=== PATIENT | male | born 1955 | race Caucasian/White ===

== ENCOUNTER 2021-09-16 13:08 | Inpatient (IN) ==
[2021-09-16] MEDS ORDERED: MoRPHine SULFATE 4 MG/ML 1 ML CARP\\VIAL IV PRN (13:21)
[2021-09-16] MEDS ORDERED: ONDANSETRON INJ 2 MG/ML 2 ML VIAL IV STA (13:21)
--- NOTE | 2021-09-16 13:46 | XRay Report ---
XR chest 1V portable CLINICAL HISTORY: Chest Pain. COMPARISON STUDY: No previous studies for comparison. TECHNIQUE: 1 view of the chest FINDINGS: Single frontal view of the chest demonstrates the cardiomediastinal silhouette to be within normal li mits. The patient is status post previous cardiothoracic surgery. The lungs are clear of alveolar opa cities. There is no evidence for pleural effusion. There is no evidence for vascular congestion. Ther e is no acute osseous pathology. IMPRESSION: No acute cardiopulmonary disease. ACT 112: Negative or not required by law. Electronically signed by: Mino Daniel M.D. 09/16/2021 1:45 PM
[2021-09-16 13:58] LABS: Basophils # (auto) 0.03 K/uL (0-0.2); Basophils % (auto) 0.3 %; Eosinophils # (auto) 0.34 K/uL (0-0.5); Eosinophils % (auto) 2.8 %; Hematocrit (blood only) 35.2 % (42-52); Hemoglobin 11.1 g/dL (14.0-18.0); Immature Granulocytes # (auto) 0.09 K/uL (0.00-0.02); Immature Granulocytes % (auto) 0.8 %; Lymphocytes # (auto) 1.09 K/uL (1.2-3.4); Lymphocytes % (auto) 9.1 %; Mean Corpuscular Hemoglobin 30.6 pg (25-34); Mean Corpuscular Hgb Conc 31.5 g/dL (32-36); Mean Platelet Volume 10.2 fL (7.4-10.4); Monocytes # (auto) 0.78 K/uL (0.11-0.59); Monocytes % (auto) 6.5 %; Neutrophils # (auto) 9.61 K/uL (1.4-6.5); Neutrophils % (auto) 80.5 %; Platelet Count 430 K/uL (130-400); RDW Coefficient of Variation 12.7 % (11.5-14.5); RDW Standard Deviation 44.9 fL (36.4-46.3); Red Blood Count 3.63 M/uL (4.7-6.1); White Blood Count 11.94 K/uL (4.8-10.8)
--- NOTE | 2021-09-16 14:04 | Emergency Department Note ---
Impression & Plan Acute deep vein thrombosis (DVT) of right upper extremity, Lab test positive for detection of COVID-19 virus, Coronary artery disease, Status post coronary artery bypass graft ED Provider Note NAME: ELVI BRITT AGE: 66 SEX: M : 1955 ARRIVES VIA: Ambulance INFORMANT: Patient, ED PROVIDER(S): Basilio Montaño DO CHIEF COMPLAINT: Arm swelling HPI: The patient is a 66-year-old male who presented to the emergency department for an evaluation of arm swelling. The patient had recent coronary artery bypass grafting on 09 September. This procedure was done at [facility]. The patient has been compliant with his usual medications. He started noticing arm pain and swelling today while he was in the shower. The arm pain and swelling continued. He was sent to the emergency department because of this pain. Reportedly the arm was discolored and the pulses were diminished. The patient states the pain is moderate. He denies having any chest pain or difficulty breathing but is still recovering from bypass graft surgery. The patient states he has been taking all his medications only as prescribed. He was seen at the [facility]. He denies having any abdominal pain. The patient has no recent falls that he reports. ROS: See above HPI for pertinent positives & negatives. A total of 10 systems reviewed and were otherwise negative. PAST MEDICAL HISTORY: See Below PAST SURGICAL HISTORY: See Below FAMILY HISTORY: See Below SOCIAL HISTORY: See Below HOME MEDICATIONS: See Below ALLERGIES: See Below VITALS: See Below PHYSICAL EXAMINATION: GENERAL: Patient is awake alert in no acute distress patient is resting comfortably and showing no signs of anxiety EYES: The conjunctivae are clear. The pupils are round and reactive. EARS, NOSE, MOUTH AND THROAT: The nose is without any evidence of any deformity. Mucous membranes are moist. Tongue is midline. NECK: The neck is nontender and supple. RESPIRATORY: Diminished breath sounds are noted at both bases. There are rales at both bases. There was no tachypnea or conversational dyspnea. CARDIOVASCULAR: Regular rate and rhythm was noted to auscultation. Systolic murmur was suggested. GASTROINTESTINAL: The abdomen is soft. Abdomen is nontender. MUSCULOSKELETAL/EXTREMITIES: There is no evidence of gross deformity full range of motion is noted in the hips and shoulders. SKIN: Pulses are symmetric in both wrist. There is significant pallor and swelling to the right upper extremity. There is no pain with range of motion testing. Pedal edema was noted bilaterally. Skin was warm and dry. There is a healing scar on the anterior chest. There is no erythema drainage or dehiscence. NEUROLOGIC: Patient is awake alert and oriented x3. MEDICAL DECISION MAKING: The patient is a 66-year-old male who presented to the emergency department for an evaluation of right upper extremity swelling. The patient recently had coronary artery bypass grafting surgery. He presented to the emergency department after he noticed a rather acute onset of swelling in his right arm. Reportedly the patient had decreased pulses in the right wrist but on my physical exam the patient's pulses are symmetric. He does have discoloration as well as swelling in the right arm. Doppler report revealed extensive DVT through the right upper extremity extending into the right jugular vein. I discussed the patient's laboratory and radiographic studies with him. He was started on IV heparin in the emergency department. I did discuss his case with the covering cardiothoracic surgeon where the patient had his procedure. Obviously starting blood thinners on this patient would be required given the patient's findings but they did recommend once the patient was able to be disc harged to try to transition him to Coumadin. I discussed the patient's condition with the on-call [facility] hospitalist. They have agreed to evaluate the patient in the emergency department for further management and disposition. The patient did not have any chest pain tachycardia or hypoxia. Triage Nursing notes reviewed. Prior medical records reviewed Vital Signs: reviewed and remarkable for no significant abnormalities Differential diagnosis: DVT, musculoskeletal, infection, joint effusion, trauma, lymphedema, idiopathic, CHF, as well as other pathologies. ER treatment provided: See below Diagnostics interpreted by me: ECG: EKG was obtained in the emergency department. My interpretation is normal sinus rhythm at 70 bpm. There was no ectopy. Right bundle branch block pattern was noted. Anterior and lateral T wave versions were noted. No previous tracing was available. Cardiac Monitoring: An order was placed for continuous cardiac monitoring. The monitor shows a rate of 79 bpm with sinus rhythm. Laboratory studies: As stated above and show below. Imaging studies: See below Consultation(s): I discussed this case with Dr. Rae who is on for cardiothoracic surgery at [facility] where the patient had his bypass. He does recommend IV heparin at this time. When the patient is stabilized and able to be discharged to home he would prefer the patient to be bridged to Coumadin if at all possible but he is available for further consultation. I discussed this case with Dr. Mack who is on-call for the [facility] hospitalist group. They will evaluate the patient in the emergency department for further management and disposition. ED COURSE: Procedures: none Critical Care: I have personally spent greater than 55 minutes of critical care time in the direct management of this patient. This includes bedside care, interpretation of diagnostic studies, and testing, discussion with consultants, patient, and family members, and other required patient management activities. This 55 minutes is in excess of all separately billable procedures. Past Med/Surg History Medical History Abnormal nuclear stress test Angina, class II Antiplatelet or antithrombotic long-term use Dyslipidemia Family history of premature coronary artery disease Former smoker Hypertension Surgical History S/P CABG (coronary artery bypass graft) Social History Smoking Status: Never smoker Hx Alcohol Use: No Hx Substance Use: No Current Living Situation [facility] Feels Safe at Home: Yes Allergies Allergies Allergy/AdvReac Type Severity Reaction Status Date / Time No Known Allergies Allergy Verified 09/16/21 14:13 Home Meds Home Medications Medication Instructions Recorded Confirmed aspirin 81 mg tablet 81 mg PO DAILY 05/18/21 06/11/21 atenolol 50 mg tablet 50 mg PO DAILY 05/18/21 06/11/21 atorvastatin 40 mg tablet 40 mg PO DAILY 05/18/21 06/11/21 diltiazem HCl 120 mg tablet 120 mg PO BID tab 05/18/21 06/11/21 Previous Rx's Medication Instructions Recorded isosorbide mononitrate 30 mg 30 mg PO QAM #30 tab 06/11/21 tablet,extended release 24 hr Results & Data (ED) Vital Signs Vital Signs - 24 hr 09/16/21 13:21 09/16/21 13:31 09/16/21 15:00 Temperature 36.8 C Temperature Source Oral Pulse Rate 70 69 Pulse Rate [Apical] Pulse Rate from SpO2 Sensor 71 Respiratory Rate 18 18 Blood Pressure 120/69 118/77 Blood Pressure [Left Arm] Blood Pressure Mean 86 90 Blood Pressure Mean [Left Arm] Pulse Oximetry 95 94 96 Oxygen Delivery Method Room Air Room Air Room Air Sepsis Recent Fever Within 48 Hours No Sepsis New/Unexplained Change in Mental Status No Sepsis Action Taken by Nursing No Action Required 09/16/21 15:44 09/16/21 16:00 09/16/21 16:30 Temperature Temperature Source Pulse Rate 73 74 Pulse Rate [Apical] 71 Pulse Rate from SpO2 Sensor 72 68 Respiratory Rate 18 17 14 Blood Pressure 142/71 H 134/81 Blood Pressure [Left Arm] 120/77 Blood Pressure Mean 94 98 Blood Pressure Mean [Left Arm] 91 Pulse Oximetry 97 96 96 Oxygen Delivery Method Room Air Room Air Room Air Sepsis Recent Fever Within 48 Hours Sepsis New/Unexplained Change in Mental Status Sepsis Action Taken by Nursing 09/16/21 17:00 09/16/21 17:30 Temperature Temperature Source Pulse Rate 72 79 Pulse Rate [Apical] Pulse Rate from SpO2 Sensor 72 80 Respiratory Rate 17 24 Blood Pressure 140/94 Blood Pressure [Left Arm] Blood Pressure Mean 109 Blood Pressure Mean [Left Arm] Pulse Oximetry 96 97 Oxygen Delivery Method Room Air Room Air Sepsis Recent Fever Within 48 Hours Sepsis New/Unexplained Change in Mental Status Sepsis Action Taken by Jail Medications Current Medication List: was personally reviewed by me Laboratory Data Attestation: I reviewed the patient's lab results. Result diagrams: 09/16/21 13:39 09/16/21 13:39 Lab Results 09/16/21 09/16/21 09/16/21 Range/Units 13:00 13:39 13:39 WBC (4.8-10.8) K/uL RBC (4.7-6.1) M/uL Hgb (14.0-18.0) g/dL Hct (42-52) % MCV (80-100) fL MCH (25-34) pg MCHC (32-36) g/dL RDW Std Deviation (36.4-46.3) fL RDW Coeff of Mary (11.5-14.5) % Plt Count (130-400) K/uL MPV (7.4-10.4) fL Immature Gran % (Auto) % Neut % (Auto) % Lymph % (Auto) % [place] % (Auto) % Eos % (Auto) % Baso % (Auto) % Neut # (Auto) (1.4-6.5) K/uL Lymph # (Auto) (1.2-3.4) K/uL [place] # (Auto) (0.11-0.59) K/uL Eos # (Auto) (0-0.5) K/uL Baso # (Auto) (0-0.2) K/uL Immature Gran # (Auto) (0.00-0.02) K/uL PT 13.0 H (9.0-12.0) Seconds INR 1.3 H (0.9-1.1) APTT 22.2 (21.0-31.0) Seconds PTT Ratio 0.8 Sodium 140 (136-145) mmol/L Potassium 4.9 (3.5-5.1) mmol/L Chloride 105 (98-107) mmol/L Carbon Dioxide 25 (21-32) mmol/L Anion Gap 10.0 (3-11) BUN 14 (7-18) mg/dl Creatinine 1.15 (0.6-1.4) mg/dl Est Cr Clr Drug Dosing 83.9 ml/min Est GFR ( Amer) 77.5 ml/min Est GFR (Non-Af Amer) 66.9 ml/min BUN/Creatinine Ratio 12.2 (10-20) Glucose 120 H (70-99) mg/dl Calcium 8.8 (8.5-10.1) mg/dl Total Bilirubin 0.7 (0.2-1) mg/dl AST 52 H (15-37) U/L ALT 82 H (12-78) U/L Alkaline Phosphatase 81 (45-117) U/L Troponin I < 0.015 (0-0.045) ng/ml NT-Pro-B Natriuret Pep 1725 H (0-900) pg/ml Total Protein 7.1 (6.4-8.2) gm/dl Albumin 2.8 L (3.4-5.0) gm/dl Globulin 4.3 H (2.5-4.0) gm/dl Albumin/Globulin Ratio 0.6 L (0.9-2) Lipase 215 (73-393) U/L SARS-CoV-2, RNA, NAAT POSITIVE A* (NEGATIVE) 09/16/21 Range/Units 13:39 WBC 11.94 H (4.8-10.8) K/uL RBC 3.63 L (4.7-6.1) M/uL Hgb 11.1 L (14.0-18.0) g/dL Hct 35.2 L (42-52) % MCV 97.0 (80-100) fL MCH 30.6 (25-34) pg MCHC 31.5 L (32-36) g/dL RDW Std Deviation 44.9 (36.4-46.3) fL RDW Coeff of Mary 12.7 (11.5-14.5) % Plt Count 430 H (130-400) K/uL MPV 10.2 (7.4-10.4) fL Immature Gran % (Auto) 0.8 % Neut % (Auto) 80.5 % Lymph % (Auto) 9.1 % [place] % (Auto) 6.5 % Eos % (Auto) 2.8 % Baso % (Auto) 0.3 % Neut # (Auto) 9.61 H (1.4-6.5) K/uL Lymph # (Auto) 1.09 L (1.2-3.4) K/uL [place] # (Auto) 0.78 H (0.11-0.59) K/uL Eos # (Auto) 0.34 (0-0.5) K/uL Baso # (Auto) 0.03 (0-0.2) K/uL Immature Gran # (Auto) 0.09 H (0.00-0.02) K/uL PT (9.0-12.0) Seconds INR (0.9-1.1) APTT (21.0-31.0) Seconds PTT Ratio Sodium (136-145) mmol/L Potassium (3.5-5.1) mmol/L Chloride (98-107) mmol/L Carbon Dioxide (21-32) mmol/L Anion Gap (3-11) BUN (7-18) mg/dl Creatinine (0.6-1.4) mg/dl Est Cr Clr Drug Dosing ml/min Est GFR ( Amer) ml/min Est GFR (Non-Af Amer) ml/min BUN/Creatinine Ratio (10-20) Glucose (70-99) mg/dl Calcium (8.5-10.1) mg/dl Total Bilirubin (0.2-1) mg/dl AST (15-37) U/L ALT (12-78) U/L Alkaline Phosphatase (45-117) U/L Troponin I (0-0.045) ng/ml NT-Pro-B Natriuret Pep (0-900) pg/ml Total Protein (6.4-8.2) gm/dl Albumin (3.4-5.0) gm/dl Globulin (2.5-4.0) gm/dl Albumin/Globulin Ratio (0.9-2) Lipase (73-393) U/L SARS-CoV-2, RNA, NAAT (NEGATIVE) Administered Medications Heparin Sodium/Dextrose (Heparin Sodium/Dextrose) 25,000 units in 500 mls @ 0.02 mls/hr IV .Q24H SUDEEP; Protocol Stop: 10/16/21 15:29 Last Admin: 09/16/21 15:50 Dose: 1,650 units/hr, 33 mls/hr Documented by: [id number] Cosigned by: [id number] Morphine Sulfate (Morphine Sulfate 4 Mg/Ml 1 Ml Carp\Vial) 4 mg IV Q30M PRN PRN Reason: Pain Stop: 09/30/21 13:20 Last Admin: 09/16/21 15:57 Dose: 4 mg Documented by: [id number] Discontinued Medications Heparin Sodium (Porcine) (Heparin Sod (Porcine) 1000 Unit/Ml) 1 units IV NOW ONE Stop: 09/16/21 15:28 Last Admin: 09/16/21 15:50 Dose: 5,000 units Documented by: [id number] Cosigned by: [id number] Heparin Sodium/Dextrose (Heparin Iv Adult Wt-Based Standard With Bolus Protocol) 1 ea IV NOW STA; Protocol Stop: 09/16/21 15:13 Last Admin: 09/16/21 15:51 Dose: 1 ea Documented by: [id number] Ondansetron HCl (Ondansetron Inj 2 Mg/Ml 2 Ml Vial) 4 mg IV NOW STA Stop: 09/16/21 13:22 Last Admin: 09/16/21 15:13 Dose: Not Given Documented by: [id number] Imaging Data Radiologist's Impression: Venous Doppler Study 09/16/21 13:21 US venous doppler UE RT CLINICAL HISTORY: Right arm swelling Procedure: Right upper extremity real-time compression venous ultrasound with Duplex and Color Doppler imaging. Utilizing real-time ultrasonic imaging multiple real time high-resolution ultrasonic images of the deep venous system were performed from the forearm through the subclavian vein including evaluation of the jugular vein. Compression real time ultrasonic imaging was performed in addition to color Doppler imaging and duplex Doppler ultrasound with velocity spectral profile analysis. There is noncompressible thrombus present within the right jugular, subclavian, basilic, radial and axillary veins. Findings represent extensive deep venous thrombosis. Impression: Extensive deep venous thrombosis within the right upper extremity including the jugular vein. ACT 112: Negative or not required by law. Electronically signed by: Mino Daniel M.D. 09/16/2021 2:48 PM Chest X-Ray 09/16/21 13:22 XR chest 1V portable CLINICAL HISTORY: Chest Pain. COMPARISON STUDY: No previous studies for comparison. TECHNIQUE: 1 view of the chest FINDINGS: Single frontal view of the chest demonstrates the cardiomediastinal silhouette to be within normal limits. The patient is status post previous cardiothoracic surgery. The lungs are clear of alveolar opacities. There is no evidence for pleural effusion. There is no evidence for vascular congestion. There is no acute osseous pathology. IMPRESSION: No acute cardiopulmonary disease. ACT 112: Negative or not required by law. Electronically signed by: Mino Daniel M.D. 09/16/2021 1:45 PM Discharge Plan Visit Data Chief Complaint: Swelling/Edema to Extremity Stated Complaint: R ARM EDEMA ED Provider: Basilio Montaño Discharge Problem: Acute deep vein thrombosis (DVT) of right upper extremity, Lab test positive for detection of COVID-19 virus, Coronary artery disease, Status post coronary artery bypass graft Patient Disposition: Being Evaluated by Hospitalist Forms Stand Alone Forms: [email or web address] [email or web address] Prescriptions Prescriptions: No Action aspirin 81 mg tablet 81 mg PO DAILY RF: 0 atenolol 50 mg tablet 50 mg PO DAILY RF: 0 atorvastatin 40 mg tablet 40 mg PO DAILY RF: 0 diltiazem HCl 120 mg tablet 120 mg PO BID RF: 0 isosorbide mononitrate 30 mg tablet extended release 24 hr 30 mg PO QAM Qty: 30 RF: 3 Referrals Referrals: Fanny BELLE [Primary Care Provider] - Discharge Problem: Acute deep vein thrombosis (DVT) of right upper extremity Qualifiers: Affected thrombotic vein of extremity: unspecified vein of extremity Qualified Code(s): I82.621 - Acute embolism and thrombosis of deep veins of right upper extremity Coronary artery disease Qualifiers: Coronary Disease-Associated Artery/Lesion type: unspecified vessel or lesion type [place] vs. transplanted heart: unspecified whether [place] or transplanted heart Associated angina: unspecified whether angina present Qualified Code(s): I25.10 - Atherosclerotic heart disease of [place] coronary artery without angina pectoris
[2021-09-16 14:10] LABS: INR 1.3 (0.9-1.1); Partial Thromboplastin Ratio 0.8; Partial Thromboplastin Time 22.2 Seconds (21.0-31.0)
[2021-09-16 14:15] LABS: Alanine Aminotransferase 82 U/L (12-78); Albumin Level 2.8 gm/dl (3.4-5.0); Aspartate Aminotransferase 52 U/L (15-37); BUN Creatinine Ratio 12.2 (10-20); Blood Urea Nitrogen 14 mg/dl (7-18); Calcium 8.8 mg/dl (8.5-10.1); Carbon Dioxide 25 mmol/L (21-32); Chloride 105 mmol/L (98-107); Creatinine Clr Calc Pharmacy 83.9 ml/min; Est GFR (African American) 77.5 ml/min; Est GFR (Non-African American) 66.9 ml/min; Glucose 120 mg/dl (70-99); Lipase 215 U/L (73-393); Potassium 4.9 mmol/L (3.5-5.1); Sodium 140 mmol/L (136-145)
[2021-09-16 14:20] LABS: Albumin Globulin Ratio 0.6 (0.9-2); Alkaline Phosphatase 81 U/L (45-117); Bilirubin,Total 0.7 mg/dl (0.2-1); Globulin 4.3 gm/dl (2.5-4.0); NT Pro B Type Natriuretic Pept 1725 pg/ml (0-900); Total Protein 7.1 gm/dl (6.4-8.2); Troponin I < 0.015 ng/ml (0-0.045)
--- NOTE | 2021-09-16 14:49 | Ultrasound Report ---
US venous doppler UE RT CLINICAL HISTORY: Right arm swelling Procedure: Right upper extremity real-time compression venous ultrasound with Duplex and Color Dopple r imaging. Utilizing real-time ultrasonic imaging multiple real time high-resolution ultrasonic images of the de ep venous system were performed from the forearm through the subclavian vein including evaluation of the jugular vein. Compression real time ultrasonic imaging was performed in addition to color Dopple r imaging and duplex Doppler ultrasound with velocity spectral profile analysis. There is noncompressible thrombus present within the right jugular, subclavian, basilic, radial and a xillary veins. Findings represent extensive deep venous thrombosis. Impression: Extensive deep venous thrombosis within the right upper extremity including the jugular vein. ACT 112: Negative or not required by law. Electronically signed by: Mino Daniel M.D. 09/16/2021 2:48 PM
[2021-09-16] MEDS ORDERED: Heparin IV Adult Wt-Based Standard WITH Bolus Protocol IV STA (15:12)
[2021-09-16] MEDS ORDERED: HEPARIN SOD (PORCINE) 1000 UNIT/ML IV ONE (15:27)
[2021-09-16] MEDS: HEPARIN SODIUM/DEXTROSE 25,000 UNITS/500 ML BAG IV SCH (15:50)
--- NOTE | 2021-09-16 17:17 | Electrocardiogram Report ---
Test Reason : Blood Pressure : / mmHG Vent. Rate : 070 BPM Atrial Rate : 070 BPM P-R Int : 172 ms QRS Dur : 118 ms QT Int : 502 ms P-R-T Axes : 051 234 032 degrees QTc Int : 542 ms Normal sinus rhythm Incomplete right bundle branch block Possible Right ventricular hypertrophy Cannot rule out Inferior infarct , age undetermined T wave abnormality, consider anterolateral ischemia Prolonged QT Abnormal ECG No previous ECGs available Confirmed by Jason Pete ([id number]) on 09/16/2021 5:17:28 PM Referred By: Confirmed By:Luis M Pete
[2021-09-16] MEDS ORDERED: WARFARIN SOD 10 MG TAB PO SCH (18:02)
--- NOTE | 2021-09-16 18:14 | History & Physical Report ---
Date of Service September 16, 2021 Assessment & Plan (1) Acute deep vein thrombosis (DVT) of right upper extremity: Plan: Acute DVT within the right jugular, subclavian, basilic, radial, and axillary veins. - Case discussed by ED physician with [facility] -> Ok for anticoagulation. Given he is a prisoner, will need to do warfarin. - Heparin gtt then warfarin; discussed with pharmacist; will start with 10 mg PO daily x 2 days, then likely switch down to 5 mg or maybe 7.5 mg. Warfarin will fall off in 2 days, and have to be re-ordered. - Note: Could call YOSHI Escobedo on Friday to determine if Lovenox injections are available. Could expedite discharge. (Maybe ask Laksh[facility] Waggoner to check?) (2) COVID-19: Plan: Some mild, non-productive cough. CXR clear. Was vaccinated. Stable O2 sat on room air. - Isolation - Symptom management as needed (3) Coronary artery disease: Plan: S/p CABG on 09/09/2021. Not sure what vessels/how many. - Continue home ASA, beta-kylie, and statin. For me, patient was not sure if he was taking calcium channel kylie or Imdur still. - Can ask [facility] tomorrow (4) Hypertension: Plan: BP presently 140/95 in the ED. - As above History of Present Illness Primary Care Provider: YOSHI Escobedo 66yo M w/ hx of CAD s/p CABG at [facility] on Sep 09. He was discharged back to the [facility] on 09/[facility]. He was in a good state of health, but today, he noted significant right arm and neck pain and swelling and was brought to the ER. In the ER, ultrasound noted DVT within the right jugular, subclavian, basilic, radial, and axillary veins. Overall, he was doing well. He reports a small amount of shortness of breath on exertion, but no chest pain, no nausea or vomiting. Good appetite. No leg swelling. Allergies Allergy/AdvReac Type Severity Reaction Status Date / Time No Known Allergies Allergy Verified 09/16/21 14:13 Home Medications Medication Instructions Recorded Confirmed Type aspirin 81 mg tablet 81 mg PO DAILY 05/18/21 09/16/21 History atenolol 50 mg tablet 50 mg PO DAILY 05/18/21 09/16/21 History atorvastatin 40 mg tablet 40 mg PO DAILY 05/18/21 09/16/21 History diltiazem HCl 120 mg tablet 120 mg PO BID tab 05/18/21 09/16/21 History isosorbide mononitrate 30 mg 30 mg PO QAM #30 tab 06/11/21 09/16/21 Rx tablet,extended release 24 hr Past Med/Surg History Medical History Abnormal nuclear stress test Angina, class II Antiplatelet or antithrombotic long-term use Dyslipidemia Family history of premature coronary artery disease Former smoker Hypertension Surgical History S/P CABG (coronary artery bypass graft) Social History Smoking Status: Never smoker Hx Alcohol Use: No Hx Substance Use: No Current Living Situation Comment: [facility] Feels Safe at Home: Yes Review of Systems Review of Systems: All systems reviewed & are unremarkable except as noted in HPI & below Physical Exam Constitutional: WD/WN, vitals as above Eyes: EOM intact bilaterally; no conjunctival abnormality ENMT: external ear and nose normal, oropharynx normal Neck: trachea midline, no thyromegaly normal visual inspection Respiratory: normal respiratory effort, lungs clear to auscultation no respiratory distress Cardiovascular: Rate/Rhythm: regular rate and regular rhythm Heart Sounds: normal S1 and normal S2 Extremities: + edema (Right arm and shoulder) Gastrointestinal (Abdomen): Inspection/Auscultation: abdomen normal to inspection; abdomen not distended Musculoskeletal: no cyanosis or clubbing, extremities motor strength 5/5 Skin: no rashes, warm and dry Neurologic: moves all extremities and awake Psychiatric: Orientation: alert, oriented to person and cooperative Results & Data Results & Data ([facility]) Vital Signs (Past 12 Hours) Vital Signs Temp Pulse Pulse Resp BP BP Pulse Ox 09/16/21 17:30 79 24 140/94 97 09/16/21 17:00 72 17 96 09/16/21 16:30 74 14 134/81 96 09/16/21 16:00 73 17 142/71 H 96 09/16/21 15:44 71 18 120/77 97 09/16/21 15:00 69 18 118/77 96 11/28/21 13:31 94 09/16/21 13:21 36.8 C 70 18 120/69 95 Code Status & VTE Plan VTE Prophylaxis Plan VTE Prophylaxis will be ordered: Yes PG Care Time/CCT Total # of Minutes Spent Total Time Spent with Patient: Total time spent is greater than 50% in coordination of care (as documented) at patient's floor/unit and/or counseling patient: Coding Level of Care Code 87698 Initial Inpt Care Lvl 3 Diagnoses Acute deep vein thrombosis (DVT) of right upper extremity I82.621 Affected thrombotic vein of extremity: unspecified vein of extremity COVID-19 U07.1 Coronary artery disease I25.10 Associated angina: unspecified whether angina present Coronary Disease-Associated Artery/Lesion type: unspecified vessel or lesion type [place] vs. transplanted heart: unspecified whether [place] or transplanted heart Hypertension I10 (1) Acute deep vein thrombosis (DVT) of right upper extremity Affected thrombotic vein of extremity: unspecified vein of extremity Qualified Code(s): I82.621 - Acute embolism and thrombosis of deep veins of right upper extremity (2) Coronary artery disease Associated angina: unspecified whether angina present Coronary Disease- Associated Artery/Lesion type: unspecified vessel or lesion type [place] vs. transplanted heart: unspecified whether [place] or transplanted heart Qualified Code(s): I25.10 - Atherosclerotic heart disease of [place] coronary artery without angina pectoris
[2021-09-16] MEDS ORDERED: ONDANSETRON INJ 2 MG/ML 2 ML VIAL IV PRN (21:47)
[2021-09-16 23:27] LABS: Partial Thromboplastin Ratio 1.5; Partial Thromboplastin Time 39.2 Seconds (21.0-31.0)
[2021-09-17] MEDS: ACETAMINOPHEN 325 MG TAB PO PRN ×2 (05:26→23:26)
[2021-09-17 05:45] LABS: Hematocrit (blood only) 33.3 % (42-52); Hemoglobin 10.5 g/dL (14.0-18.0); Mean Corpuscular Hemoglobin 30.8 pg (25-34); Mean Corpuscular Hgb Conc 31.5 g/dL (32-36); Mean Corpuscular Volume 97.7 fL (80-100); Mean Platelet Volume 10.4 fL (7.4-10.4); Platelet Count 401 K/uL (130-400); RDW Standard Deviation 45.8 fL (36.4-46.3); Red Blood Count 3.41 M/uL (4.7-6.1); White Blood Count 9.84 K/uL (4.8-10.8)
[2021-09-17 06:13] LABS: BUN Creatinine Ratio 15.4 (10-20); Calcium 8.7 mg/dl (8.5-10.1); Creatinine Clr Calc Pharmacy 112.1 ml/min; Est GFR (African American) 106.2 ml/min; Est GFR (Non-African American) 91.6 ml/min; Magnesium 2.5 mg/dl (1.8-2.4); Potassium 4.5 mmol/L (3.5-5.1)
[2021-09-17 06:30] LABS: INR 1.3 (0.9-1.1); Partial Thromboplastin Ratio 1.1; Partial Thromboplastin Time 29.3 Seconds (21.0-31.0)
[2021-09-17] MEDS ORDERED: HEPARIN SOD (PORCINE) 1000 UNIT/ML IV ONE (06:38)
[2021-09-17] MEDS: HEPARIN SODIUM/DEXTROSE 25,000 UNITS/500 ML BAG IV SCH ×2 (06:47→15:42)
[2021-09-17] MEDS: ATENOLOL 50 MG TABLET PO SCH (08:51)
[2021-09-17] MEDS: ATORVASTATIN 40 MG TAB PO SCH (08:51)
[2021-09-17] MEDS: ASPIRIN 81 MG ECTAB PO SCH (08:51)
[2021-09-17 13:37] LABS: Partial Thromboplastin Ratio 5.1
[2021-09-17 13:48] LABS: Partial Thromboplastin Time 135.2 Seconds (21.0-31.0)
[2021-09-17] MEDS ORDERED: ENOXAPARIN INJ 120 MG/0.8 ML SYR SQ ONE (16:00)
[2021-09-17] MEDS: WARFARIN SOD 5 MG TAB PO SCH (16:19)
--- NOTE | 2021-09-17 21:18 | Hospitalist Progress Note ---
Date of Service September 17, 2021 Assessment & Plan (1) Acute deep vein thrombosis (DVT) of right upper extremity: Plan: Acute DVT within the right jugular, subclavian, basilic, radial, and axillary veins. - Case discussed by ED physician with [facility] -> [place] for antico[place]. Given he is a prisoner, will need to do warfarin. - Heparin gtt then warfarin; discussed with pharmacist; received 10 mg PO daily x 1 day, will switch to 5 mg and will monitor. (2) COVID-19: Plan: Some mild, non-productive cough. CXR clear. Was vaccinated. Stable O2 sat on room air. - Isolation - Symptom management as needed (3) Coronary artery disease: Plan: S/p CABG on 09/09/2021. Not sure what vessels/how many. - Continue home ASA, beta-kylie, and statin. For me, patient was not sure if he was taking calcium channel kylie or Imdur still. BP at goal. (4) Hypertension: Plan: BP presently 140/95 in the ED. - As above Admission and Anticipated Discharge Date Admission Date: September 16, 2021 Subjective Patient reports decreased swelling of his right arm. He feels that he is less SOB today. Review of Systems Review of Systems: All systems reviewed & are unremarkable except as noted in HPI & below Physical Exam 2 Physical Exam: Constitutional: WD/WN, vitals as above Eyes: EOM intact bilaterally; no conjunctival abnormality ENMT: external ear and nose normal, oropharynx normal Neck: trachea midline, no thyromegaly normal visual inspection Respiratory: normal respiratory effort, lungs clear to auscultation no respiratory distress Cardiovascular: Rate/Rhythm: regular rate and regular rhythm Heart Sounds: normal S1 and normal S2 Extremities: + edema (Right arm and shoulder) Gastrointestinal (Abdomen): Inspection/Auscultation: abdomen normal to inspection; abdomen not distended Musculoskeletal: no cyanosis or clubbing, extremities motor strength 5/5 Skin: no rashes, warm and dry Neurologic: moves all extremities and awake Psychiatric: Orientation: alert, oriented to person and cooperative PG Care Time/CCT Total # of Minutes Spent Total Time Spent with Patient: Total time spent is greater than 50% in coordination of care (as documented) at patient's floor/unit and/or counseling patient: Coding Level of Care Code 97944 Subseq Hosp Care Lvl 2 Diagnoses Acute deep vein thrombosis (DVT) of right upper extremity I82.621 Affected thrombotic vein of extremity: unspecified vein of extremity COVID-19 U07.1 Coronary artery disease I25.10 Associated angina: unspecified whether angina present Coronary Disease-Associated Artery/Lesion type: unspecified vessel or lesion type [place] vs. transplanted heart: unspecified whether [place] or transplanted heart Hypertension I10 Time Spent (min) 25 (1) Acute deep vein thrombosis (DVT) of right upper extremity Affected thrombotic vein of extremity: unspecified vein of extremity Qualified Code(s): I82.621 - Acute embolism and thrombosis of deep veins of right upper extremity (2) Coronary artery disease Associated angina: unspecified whether angina present Coronary Disease- Associated Artery/Lesion type: unspecified vessel or lesion type [place] vs. transplanted heart: unspecified whether [place] or transplanted heart Qualified Code(s): I25.10 - Atherosclerotic heart disease of [place] coronary artery without angina pectoris
[2021-09-18] MEDS: ENOXAPARIN INJ 120 MG/0.8 ML SYR SQ SCH ×2 (05:45→18:16)
[2021-09-18 06:21] LABS: Mean Corpuscular Hemoglobin 30.6 pg (25-34); Mean Corpuscular Hgb Conc 31.4 g/dL (32-36); Mean Corpuscular Volume 97.2 fL (80-100); Mean Platelet Volume 10.3 fL (7.4-10.4); Platelet Count 419 K/uL (130-400); RDW Coefficient of Variation 13.1 % (11.5-14.5); RDW Standard Deviation 45.9 fL (36.4-46.3); White Blood Count 7.76 K/uL (4.8-10.8)
[2021-09-18 06:40] LABS: INR 1.7 (0.9-1.1); Prothrombin Time 16.7 Seconds (9.0-12.0)
[2021-09-18 06:59] LABS: BUN Creatinine Ratio 13.3 (10-20); Calcium 8.9 mg/dl (8.5-10.1); Creatinine Clr Calc Pharmacy 98.3 ml/min; Est GFR (African American) 96.4 ml/min; Est GFR (Non-African American) 83.2 ml/min; Potassium 4.3 mmol/L (3.5-5.1)
[2021-09-18] MEDS: ATENOLOL 50 MG TABLET PO SCH (08:14)
[2021-09-18] MEDS: ASPIRIN 81 MG ECTAB PO SCH (08:14)
[2021-09-18] MEDS: ATORVASTATIN 40 MG TAB PO SCH (08:14)
[2021-09-18] MEDS: ACETAMINOPHEN 325 MG TAB PO PRN (15:17)
[2021-09-18] MEDS: WARFARIN SOD 5 MG TAB PO SCH (16:45)
--- NOTE | 2021-09-23 20:46 | Discharge Summary ---
Date of Service September 18, 2021 Admission HPI Per Admitting Provider 66yo M w/ hx of CAD s/p CABG at [facility] on Sep 09. He was discharged back to the nursing home on 09/14. He was in a good state of health, but today, he noted significant right arm and neck pain and swelling and was brought to the ER. In the ER, ultrasound noted DVT within the right jugular, subclavian, basilic, radial, and axillary veins. Overall, he was doing well. He reports a small amount of shortness of breath on exertion, but no chest pain, no nausea or vomiting. Good appetite. No leg swelling. Principal Diagnosis Acute DVT OF RIGHT UPPER EXTREMITY Discharge Exam Constitutional: WD/WN, vitals as above Eyes: EOM intact bilaterally; no conjunctival abnormality ENMT: external ear and nose normal, oropharynx normal Neck: trachea midline, no thyromegaly normal visual inspection Respiratory: normal respiratory effort, lungs clear to auscultation no respiratory distress Cardiovascular: Rate/Rhythm: regular rate and regular rhythm Heart Sounds: normal S1 and normal S2 Extremities: + edema (Right arm and shoulder) Gastrointestinal (Abdomen): Inspection/Auscultation: abdomen normal to inspection; abdomen not distended Musculoskeletal: no cyanosis or clubbing, extremities motor strength 5/5 Skin: no rashes, warm and dry Neurologic: moves all extremities and awake Psychiatric: Orientation: alert, oriented to person and cooperative Discharge Data Allergies Allergy/AdvReac Type Severity Reaction Status Date / Time No Known Allergies Allergy Verified 09/16/21 14:13 Consultations 09/16/21 16:17 ED Decision to Admit Stat Ordered Studies 09/16/21 13:21 US venous doppler UE RT Stat Hospital Course (1) Acute deep vein thrombosis (DVT) of right upper extremity: Acute DVT within the right jugular, subclavian, basilic, radial, and axillary veins. - Case discussed by ED physician with [facility] -> [place] for anticoagulation. Given he is a prisoner, will need to do warfarin. - Heparin gtt then warfarin; discussed with pharmacist; received 10 mg PO daily x 1 day, will switch to 5 mg and will monitor. On day of discharge, iNR is at 1.7. will continue with lovenox and warfarin. Signed out given to outpatient (nursing home) provider. Patient will need to be brigded with lovenox and warfarin for 24 hours after INR is therapeutic. Will defer duration to nursing home. Likely 3-6 months. (2) COVID-19: Some mild, non-productive cough. CXR clear. Was vaccinated. Stable O2 sat on room air. - Isolation - Symptom management as needed (3) Coronary artery disease: S/p CABG on 09/09/2021. Not sure what vessels/how many. - Continue home ASA, beta-kylie, and statin. For me, patient was not sure if he was taking calcium channel kylie or Imdur still. BP at goal. (4) Hypertension: BP presently 140/95 in the ED. - As above Total Time Total Time Spent Total Time Spent (In Minutes): 32 Discharge Plan Discharge Items Patient Disposition: Home - Self-Care Reason For Visit: RIGHT JUGULAR DVT Discharge Diagnosis: right jugular DVT Activity: Resume your previous activity Non-emergency contact: Primary Care Provider Call non-emergency contact if: you have any medication questions Follow-up/Referrals: Fanny BELLE [Primary Care Provider] - Diet: Regular Addtl Attending Provider Instructions: You have been hospitalized for an acute medical problem. During your stay at [facility], we have made an effort to correct the problem that brought you to the hospital while keeping you as comfortable as possible. Medications were used to bring your condition under control and your discharge instructions will include directions for any medications you should take after leaving the hospital. Please make sure you see your Primary Care Provider as part of your follow up plan. You will be on Lovenox and coumadin. Once your INR is above 2, you can continue on lovenox for 24 hours and then stop. Will need to be on coumadin for 3-6 months. will defer to your provider at nursing home or PCP if you are discharged. Given that you have COVID, will need to quarantine 10 days from date of positive test. Will recommend holding diltiazem as your HR and BP are at goal. Pending Studies at Discharge: No Stand-Alone Forms: My [facility] [employer] Portals, Smoking Cessation Medications and DC Order Prescriptions: New enoxaparin [Lovenox] 120 mg/0.8 mL Syringe 111 mg subcut Q12H 30 Days Qty: 44.4 RF: 0 warfarin 5 mg Tablet 5 mg PO DAILY@1600 Qty: 30 RF: 0 Continued aspirin 81 mg tablet 81 mg PO DAILY RF: 0 atenolol 50 mg tablet 50 mg PO DAILY RF: 0 atorvastatin 40 mg tablet 40 mg PO DAILY RF: 0 isosorbide mononitrate 30 mg tablet extended release 24 hr 30 mg PO QAM Qty: 30 RF: 3 Discontinued diltiazem HCl 120 mg tablet 120 mg PO BID RF: 0 Discharge Orders: Discharge Order (Routine); Ordered 09/18/21 Ordered By: Ernesto Lennon/Other Patient Handouts: Preventing Deep Vein Thrombosis Admission Data Admit Date/Time: 09/16/21 18:02 Attending Provider: Ernesto Patel Admit Provider: Shaw Waggoner Primary Care Provider: Fanny BELLE Other Providers: Ann Mack Other Interventions: Discharge Summary Assessment (RN) Last Done: 09/18/21 19:16 Coding Level of Care Code D/C DAY MANAGEMENT >30 MINS Diagnoses Acute deep vein thrombosis (DVT) of right upper extremity I82.621 Affected thrombotic vein of extremity: unspecified vein of extremity COVID-19 U07.1 Coronary artery disease I25.10 Associated angina: unspecified whether angina present Coronary Disease-Associated Artery/Lesion type: unspecified vessel or lesion type [place] vs. transplanted heart: unspecified whether [place] or transplanted heart Hypertension I10
== END 2021-09-18 19:45 | disposition home or self-care (01) | DRG 299 ==
LOC: ED 13:08 → SUATTDRO 18:02 → EDINP 18:02
DX: Z79.899 Other long term (current) drug therapy; I82.C11 Acute embolism and thrombosis of right internal jugular vein; Z79.82 Long term (current) use of aspirin; I10 Essential (primary) hypertension; Z95.1 Presence of aortocoronary bypass graft; I82.621 Acute embolism and thrombosis of deep veins of right upper extremity; U07.1 COVID-19; Z87.891 Personal history of nicotine dependence; I25.10 Atherosclerotic heart disease of native coronary artery without angina pectoris